=== PATIENT | female | born 1960 | race Asian ===

== ENCOUNTER 2016-08-15 06:38 | Day surgery (SDC) | payer BC ==
[2016-08-12 10:33] LABS: BASOPHILS 0.2 % (0.0-2.0); EOSINOPHILS 1.6 % (0-7); HEMOGLOBIN 14.3 g/dL (12-16); IMMATURE GRANULOCYTES 0.1 % (0-5); LYMPHOCYTES 19.8 % (15-50); MCH 32.2 pg (26.0-34.0); MCHC 33.3 g/dL (31.0-37.0); MCV 96.8 fL (80.0-100.0); MEAN PLATELET VOLUME 10.6 fL (7.4-10.4); MONOCYTES 6.7 % (2-11); NEUTROPHILS 71.6 % (40-80); PLATELET COUNT 198 10x3/uL (130-400); RBC 4.44 10x6/uL (4.00-5.40); RDW 12.5 % (11.5-14.5); WBC 8.9 10x3/uL (4.8-10.8)
[~2016-08-15] VITALS: Ht 154.9 cm; Wt 46.3 kg
[2016-08-15 06:18] LABS: HCG URINE NEGATIVE (NEGATIVE)
[2016-08-15 06:26] VITALS: BP 131/89; Ht 154.9 cm; Wt 46.3 kg
[~2016-08-15 06:38] MED LIST: NORCO 5/325 TAB1 TA1 PO; TYLENOL325 MG PO
--- NOTE | 2016-08-15 08:36 | NUR ---
OPA IN AIRWAY ON ADMIT TO [facility]
--- NOTE | 2016-08-15 08:37 | NUR ---
WARM BLANKET APPLIED @0838
--- NOTE | 2016-08-17 18:01 | OP ---
PATIENT NAME: TA THOMASON MEDICAL RECORD: [id number] :64 LOCATION:D[facility] ADMISSION DATE: SURGEON: VALERIANO VAZQUEZ MD DATE OF OPERATION: 08/15/2016 PREOPERATIVE DIAGNOSES: 1. Postmenopausal bleeding. 2. Cervical stenosis. POSTOPERATIVE DIAGNOSES: 1. Postmenopausal bleeding. 2. Cervical stenosis. SURGEON: Valeriano Vazquez MD ANESTHESIA: Laryngeal mask anesthesia with Johnie Kern CRNA. PROCEDURE: 1. Hysteroscopy with dilation and curettage. 2. Examination under anesthesia. FINDINGS: The patient took Cytotec preoperatively to aid in cervical softening, a nulliparous virginal introitus was noted, nulliparous, stenotic cervix. Shallow vaginal depth. Uterus sounded 3 cm. Fluffy pink endometrial tissue noted at the fundal region of the uterus, endometrial cavity, otherwise, atrophic in appearance. Balanced ins and outs during hysteroscopy. DESCRIPTION OF PROCEDURE: After informed consent was given, the patient was taken to the operating room where laryngeal mask anesthesia was placed and found to be adequate. She was placed in a dorsal lithotomy position in [facility]. She was prepped and draped sterilely including a vaginal prep. Findings were as listed above. A pediatric speculum was placed into the vagina. The cervix visualized and grasped anteriorly with a single-toothed tenaculum. After attempting to drain the bladder, the bladder had zero urine output as the patient had voided immediately preceding the surgery. Attempt was made to sound the uterus, but the internal cervical os was noted to be stenotic. We then serially dilated the cervix to 5 mm and we were able to enter the endometrial cavity. A 5 mm hysteroscope was then placed into the endometrial cavity and findings were as listed above. Targeted biopsies were taken of the fluffy pink endometrial tissue noted at the fundal region of the uterus and these were passed off the field as specimen. The hysteroscope was removed and a sharp and suction curettage was then employed with a Kevorkian curette and a 5 mm flexible suction curette. Once a gritty texture was noted circumferentially within the endometrial cavity, this procedure was terminated. The single-toothed tenaculum was removed and silver nitrate was used at the tenaculum sites with excellent hemostasis noted. The bivalve speculum was removed. The patient was returned to a supine position, awakened and taken into the recovery room in stable condition. The patient tolerated procedure well. Sponge, lap and instrument counts were reported correct times 2. ESTIMATED BLOOD LOSS: Minimal. URINE OUTPUT: Zero as the patient had voided immediately preceding surgery. SPECIMENS: OPERATIVE REPORT [id number] TA THOMASON 1. Biopsy of endometrial cavity. 2. Sharp and suction curettings. COMPLICATIONS: None. TRANSINT:[id number] Voice Confirmation ID: [id number] DOCUMENT ID: [id number] VALERIANO VAZQUEZ MD at 1801 CC: [id number] DICTATION DATE: 08/15/16 1134 LABORER/GRADE CHECK: 08/15/16 1243 [facility] [place] 08/15/16 [id number] [place] [id number]
== END 2016-08-15 10:55 | disposition home or self-care (01) ==
LOC: D.OPS 06:38 → D.PAN 07:30 → D.OPS 07:30
PROVIDERS: Specialist
DX: N95.0 Postmenopausal bleeding (principal); N88.2 Stricture and stenosis of cervix uteri